=== PATIENT | female | born 1960 ===

== ENCOUNTER 2025-06-12 13:41 | Outpatient (CLI) | payer OTHER | END 2025-06-12 13:42 | disposition home or self-care (01) | LOC: BICMRI 13:41 | PROVIDERS: ATTEND Physician Assistant | DX: M24.811 Other specific joint derangements of right shoulder, not elsewhere classified (principal); M75.111 Incomplete rotator cuff tear or rupture of right shoulder, not specified as traumatic; M25.411 Effusion, right shoulder ==